=== PATIENT | female | born 1960 | race Caucasian/White ===

== ENCOUNTER 2023-02-26 18:40 | Emergency (ER) | payer OTHER, MEDICAID ==
[~2023-02-26] VITALS: Ht 149.9 cm; Wt 73.0 kg
[2023-02-26 19:18] VITALS: BP 142/65
[2023-02-26] MEDS ORDERED: GLIPIZIDE ER2.5 MG PO (19:19)
[2023-02-26 19:20] VITALS: BP 128/62
[2023-02-26] MEDS ORDERED: LISINOPRIL10 MG PO (19:20)
[2023-02-26] MEDS ORDERED: JANUVIA100 MG PO (19:20)
[2023-02-26] MEDS ORDERED: ATORVASTATIN CA10 MG PO (19:20)
[2023-02-26 19:30] LABS: BASO% 0.3 % (0-3); EOS% 1.3 % (0-8); HEMATOCRIT 41.5 % (37.0-47.0); IMMATURE GRANULOCYTES 0.3 % (0.0-5.0); LYMPH% 19.2 % (15-41); MEAN CELL VOLUME 89.6 fL CALC (80.0-100.0); MEAN CORPUSCULAR HGB 28.1 pG CALC (26.0-32.0); MEAN CORPUSCULAR HGB CONC 31.3 g/dL CAL (32.0-36.0); MONO% 6.4 % (2-13); NEUT# 12.08 thou/uL (2.00-7.15); NEUT% 72.5 % (42-76); RED BLOOD COUNT 4.63 mill/uL (4.20-5.60); RED CELL DISTRI WIDTH 14.9 % (11.5-15.5)
[2023-02-26 19:40] VITALS: BP 151/58
[2023-02-26 19:42] LABS: ALBUMIN 4.5 g/dL (3.2-5.0); ALKALINE PHOSPHATASE 122 u/l (38-126); ANION GAP 12 (6-22 (CALC)); BILIRUBIN, TOTAL 0.2 mg/dL (0.02-1.3); BUN 13 mg/dL (7-17); BUN/CREATININE RATIO 17 (12-20 (CALC)); CARBON DIOXIDE 27 mmol/l (22-30); CHLORIDE 107 mmol/l (95-108); CREATININE 0.7 mg/dL (0.5-1.0); GFR FOR AFR.AMER. > 60 ML/MIN (>=60 (CALC)); GFR OTHER RACES > 60 ML/MIN (>=60 (CALC)); POTASSIUM 4.2 mmol/l (3.5-5.1); SGOT/AST 22 u/l (14-36); SODIUM 142 mmol/l (137-146); TOTAL PROTEIN 8.7 g/dL (6.3-8.2)
[2023-02-26 20:00] VITALS: BP 123/67
[2023-02-26 20:24] LABS: URINE BILIRUBIN - DIPSTICK NEGATIVE (NEGATIVE); URINE BLOOD DIPSTICK LARGE (NEGATIVE); URINE COLOR YELLOW; URINE GLUCOSE - DIPSTICK NEGATIVE (NEGATIVE); URINE KETONE NEGATIVE (NEGATIVE); URINE PH 6.5 (4.5-8.0); URINE PROTEIN - DIPSTICK 100 mg/dL (NEG-TRACE); URINE SPECIFIC GRAVITY <=1.005; URINE UROBILINOGEN - DIPSTICK 0.2 E.U./dL (0.2)
[2023-02-26 20:26] LABS: URINE LEUK ESTERASE LARGE (NEGATIVE); URINE NITRITE - DIPSTICK NEGATIVE (Negative)
[2023-02-26 20:37] LABS: URINE RBC 25-50 RBC/hpf (0-5); URINE WBC 50-100 WBC/hpf (0-5)
[2023-02-26] MEDS ORDERED: METHOCARBAMOL500 MG PO (20:53)
[2023-02-26] MEDS ORDERED: NAPROXEN500 MG PO (20:53)
[2023-02-26] MEDS ORDERED: KEFLEX500 MG PO (20:53)
[2023-02-26 21:21] VITALS: BP 123/67
== END 2023-02-26 21:21 | disposition home or self-care (01) | DRG 103 ==
LOC: ED 18:40
PROVIDERS: Nurse Practitioner
DX: R51.9 Headache, unspecified (principal); N39.0 Urinary tract infection, site not specified; M54.2 Cervicalgia; R07.89 Other chest pain; M25.552 Pain in left hip; M25.561 Pain in right knee; M25.551 Pain in right hip; E11.9 Type 2 diabetes mellitus without complications; V49.50XA Passenger injured in collision with unspecified motor vehicles in traffic accident, initial encounter; Z79.84 Long term (current) use of oral hypoglycemic drugs